=== PATIENT | female | born 1965 | race Caucasian/White ===

== ENCOUNTER → 2017-03-16 | Outpatient (CLI) | payer BC ==
--- NOTE | 2017-03-18 13:07 | MM ---
Reason for exam: screening (asymptomatic). Last mammogram was performed 2 years and 5 months ago. History: Saline implants in both breasts, 2000. Took hormonal contraceptives for 5 months beginning at age 44. Physical Findings: A clinical breast exam by your physician is recommended on an annual basis and results should be correlated with mammographic findings. MG Screening Mammo Implant/CAD Bilateral CC, MLO, and ID view(s) were taken. Prior study comparison: December 11, 2015, mammogram, performed at [facility]. October 15, 2014, bilateral MG screening mammo w CAD. March 03, 2013, CAD bilateral diagnostic mammogram. There are scattered fibroglandular densities. Bilateral breast prothesis. No significant changes when compared with prior studies. ASSESSMENT: Benign, BI-RAD 2 RECOMMENDATION: Routine screening mammogram of both breasts in 1 year.
== END | disposition home or self-care (01) ==
LOC: RADMAMWWP 14:12
PROVIDERS: ATTEND Obstetrics & Gynecology
DX: Z12.31 Encounter for screening mammogram for malignant neoplasm of breast (principal)

== ENCOUNTER → 2019-01-19 | Outpatient (CLI) | payer BC ==
--- NOTE | 2019-01-20 10:45 | MM ---
Reason for exam: screening (asymptomatic). Last mammogram was performed 1 year and 10 months ago. History: Saline implants in both breasts, 2000. Took hormonal contraceptives for 5 months beginning at age 44. Physical Findings: A clinical breast exam by your physician is recommended on an annual basis and results should be correlated with mammographic findings. MG 3D Screen Mammo Imp/Cad Bilateral CC, MLO, and ID view(s) were taken. Prior study comparison: March 16, 2017, bilateral MG screening mammo implant/CAD. December 11, 2015, mammogram, performed at [facility]. The breast tissue is heterogeneously dense. This may lower the sensitivity of mammography. Finding: There is a 6 mm equal density (isodense), obscured oval mass in the upper outer quadrant of the left breast. ASSESSMENT: Incomplete: need additional imaging evaluation, BI-RAD 0 RECOMMENDATION: Special view mammogram of the left breast. If lesion persists on supplemental views, image directed ultrasound is recommended. [facility] will attempt to contact patient to return for supplemental views and ultrasound if indicated.
== END | disposition home or self-care (01) ==
LOC: RADMAMWWP 11:00
PROVIDERS: ATTEND Obstetrics & Gynecology Obstetrics
DX: Z12.31 Encounter for screening mammogram for malignant neoplasm of breast (principal); Z98.82 Breast implant status
CPT/HCPCS: 77063; 77067

== ENCOUNTER → 2019-01-31 | Outpatient (CLI) | payer BC ==
--- NOTE | 2019-01-31 14:55 | MM ---
Reason for exam: additional evaluation requested from abnormal screening. Last mammogram was performed less than 1 month ago. History: Saline implants in both breasts, 2000. Took hormonal contraceptives for 5 months beginning at age 44. Physical Findings: Nurse did not find any significant physical abnormalities on exam. MG 3D Work Up W/Cad LT Spot compression CC, spot compression MLO, LM, and ID view(s) were taken of the left breast. Prior study comparison: January 19, 2019, bilateral MG 3d screen mammo imp/cad. March 16, 2017, bilateral MG screening mammo implant/CAD. Nodular density 3 o'clock, 3.6cm from nipple. These results were verbally communicated with the patient and result sheet given to the patient on 01/31/19. ASSESSMENT: Incomplete: need additional imaging evaluation, BI-RAD 0 RECOMMENDATION: Ultrasound of the left breast.
--- NOTE | 2019-01-31 14:56 | USB ---
Reason for exam: additional evaluation requested from abnormal screening. History: Saline implants in both breasts, 2000. Took hormonal contraceptives for 5 months beginning at age 44. US Breast Workup Limited LT Left limited breast ultrasound including focal area of concern, retroareolar and axilla demonstrates no cystic or solid lesion seen greater than 0.50cm. These results were verbally communicated with the patient and result sheet given to the patient on 01/31/19. ASSESSMENT: Probably benign, BI-RAD 3 RECOMMENDATION: Follow-up diagnostic mammogram of the left breast in 6 months.
== END ==
LOC: RADMAMWWP 13:26
PROVIDERS: ATTEND Obstetrics & Gynecology Obstetrics
DX: R92.8 Other abnormal and inconclusive findings on diagnostic imaging of breast (principal)
CPT/HCPCS: 77061; 77065

== ENCOUNTER 2020-04-26 11:00 | Emergency (ER) | payer BC ==
[2020-04-26] MEDS ORDERED: METOCLOPRAMIDE 5 MG/ML 2 ML VIAL IVP STA (11:54)
[2020-04-26] MEDS ORDERED: diphenhydrAMINE 50 MG/ML 1 ML VIAL IVP STA (11:54)
[2020-04-26] MEDS ORDERED: SODIUM CHLORIDE 0.9% 1,000 ML IV STA (11:54)
--- NOTE | 2020-04-26 12:01 | ED ---
General Adult HPI - General Chief complaint: Headache Stated complaint: numbness mouth and hands Time Seen by Provider: 04/26/20 11:25 Source: patient, RN notes reviewed Mode of arrival: ambulatory Limitations: no limitations - History of Present Illness Initial comments: 54-year-old female with a past medical history of migraines presents to the emergency department for chief complaint of numbness in the bilateral fingertips. Patient has had migraines for 30 years. Patient takes sumatriptan and naproxen for this. Patient states that her migraines usually began as numbness and tingling in her fingertips and mouth, followed by blurry vision, then progressing to a headache. Patient states that over the past week she has had a couple different migraines but this time is different because the numbness hasn't gone away. Patient states she called her doctor and they cannot see her today so recommend that she go to the emergency room. Patient states that she always has this numbness but it normally goes away. Patient denies blurry vision at this time. Patient does not have a headache at this time. Patient has never seen a neurologist for this.Patient has no other complaints at this time including shortness of breath, chest pain, abdominal pain, nausea or vomiting, headache, or visual changes. - Related Data Allergies Allergy/AdvReac Type Severity Reaction Status Date / Time codeine AdvReac Nausea & Verified 04/26/20 11:17 Vomiting Review of Systems ROS Statement: Those systems with pertinent positive or pertinent negative responses have been documented in the HPI. ROS Other: All systems not noted in ROS Statement are negative. Past Medical History Additional Past Medical History / Comment(s): migraine History of Any Multi-Drug Resistant Organisms: None Reported Additional Past Surgical History / Comment(s): breast augmentation Past Psychological History: No Psychological Hx Reported Smoking Status: Never smoker Past Alcohol Use History: None Reported Past Drug Use History: None Reported General Exam Limitations: no limitations General appearance: alert, in no apparent distress Head exam: Present: atraumatic, normocephalic, normal inspection Eye exam: Present: normal appearance, PERRL, EOMI. Absent: scleral icterus, conjunctival injection, periorbital swelling ENT exam: Present: normal exam, mucous membranes moist Neck exam: Present: normal inspection, full ROM. Absent: tenderness, meningismus, lymphadenopathy Respiratory exam: Present: normal lung sounds bilaterally. Absent: respiratory distress, wheezes, rales, rhonchi, stridor Cardiovascular Exam: Present: regular rate, normal rhythm, normal heart sounds. Absent: systolic murmur, diastolic murmur, rubs, gallop, clicks GI/Abdominal exam: Present: soft, normal bowel sounds. Absent: distended, ten derness, guarding, rebound, rigid Neurological exam: Present: alert, oriented X3, CN II-XII intact, normal gait, other (GCS 15) Expanded Patient oriented to: Present: person, place, time Speech: Present: fluid speech Cranial nerves: EOM's Intact: Normal, Tongue Deviation: Normal, Nystagmus: Nor mal, Facial Sensation: Normal Cerebellar function: Finger to Nose: Normal, Heel to [place]: Normal, Romberg: Normal Upper motor neuron: Pronator Drift: Normal Sensory exam: Upper Extremity Light Touch: Normal, Upper Extremity Pin Prick: Normal, Lower Extremity Light Touch: Normal, Lower Extremity Pin Prick: Normal Motor strength exam: RUE: 5, LUE: 5, RLE: 5, LLE: 5 Eye Response: (4) open spontaneously Motor Response: (6) obeys commands Verbal Response: (5) oriented Katelyn Total: 15 Psychiatric exam: Present: normal affect, normal mood Course Vital Signs 04/26/20 11:10 Temperature 98.1 F Pulse Rate 64 Respiratory 18 Rate O2 Sat by Pulse 99 Oximetry Medical Decision Making - Medical Decision Making HPI physical exam is documented. Neurologic exam is unremarkable. No focal neurologic deficits. Patient is well-appearing. Patient was essentially sent from primary care for a CAT scan of the brain. I did obtain this which showed no acute intracranial hemorrhage or midline shift. Patient has no headache at this time. Patient was then given Toradol. Patient actually did have improvement in the numbness in the distal fingertips bilaterally. At this time patient will follow-up with neurology. She'll return for any worsening symptoms. Patient is agreeable to this plan. Disposition Clinical Impression: Paresthesia Disposition: HOME SELF-CARE Condition: Good Instructions (If sedation given, give patient instructions): Paresthesia (ED) Additional Instructions: Please follow-up with primary care neurology. If you have worsening symptoms return here to the emergency room. Is patient prescribed a controlled substance at d/c from ED?: No Referrals: Kaye Ortiz III, MD [Primary Care Provider] - 1-2 days John Saab MD [Medical Doctor] - 1-2 days Time of Disposition: 13:40
--- NOTE | 2020-04-26 12:50 | CT ---
EXAMINATION TYPE: CT brain wo con DATE OF EXAM: 04/26/2020 HISTORY: FISHER, numbness hands and mouth CT DLP: 1078.4 mGycm. Automated Exposure Control for Dose Reduction was Utilized. TECHNIQUE: CT scan of the head is performed without contrast. COMPARISON: None. FINDINGS: There is no acute intracranial hemorrhage or midline shift identified. Ventricles and sul ci within normal limits in size for patient's age. Padilla-white matter differentiation fairly well main tained. The calvarium is intact. . Soft tissue density in right greater than left external auditory canals likely reflects cerumen. The globes are intact and the visualized sinuses are clear. IMPRESSION: No acute intracranial hemorrhage or midline shift.
[2020-04-26] MEDS ORDERED: KETOROLAC 30 MG/ML 1 ML VIAL IVP STA (12:59)
[2020-04-26 15:52] VITALS: BP 120/56; PULSE 60; RESP 20; TEMP 98
== END 2020-04-26 15:50 | disposition home or self-care (01) ==
LOC: EC 11:00
DX: R20.2 Paresthesia of skin (principal); R20.0 Anesthesia of skin; Z88.5 Allergy status to narcotic agent
CPT/HCPCS: 70450; 99284; 96374; 96375 ×2; 96361 ×3; J1200; J2765; J1885

== ENCOUNTER → 2020-07-02 | Day surgery (SDC) | payer BC ==
[2020-07-01 08:30] VITALS: BMI 22.4
[~2020-07-02] MED LIST: LACTATED RINGERS 1,000 ML IV SCH; LIDOCAINE 1% (10MG/ML) FOR IV START INTRADERMA PRN; ONDANSETRON 4 MG/2 ML VIAL ONE; PROPOFOL 10 MG/ML 20 ML VIAL IV ONE
[2020-07-02 09:17] VITALS: TEMP 97
--- NOTE | 2020-07-02 09:35 | P.GSHP ---
History of Present Illness H&P Date: 07/02/20 Chief Complaint: Colon cancer screening Patient here today for colonoscopy. She has not had 1 previously. No bowel complaints. No family history of colon cancer. Past Medical History Additional Past Medical History / Comment(s): migraine History of Any Multi-Drug Resistant Organisms: None Reported Past Surgical History: Breast Surgery Additional Past Surgical History / Comment(s): breast augmentation Past Anesthesia/Blood Transfusion Reactions: No Reported Reaction Smoking Status: Never smoker - Past Family History Mother Family Medical History: No Reported History Medications and Allergies Home Medications Medication Instructions Recorded Confirmed Type Naproxen [Naprosyn] 500 mg PO Q12HR PRN 07/01/20 07/02/20 History SUMAtriptan succinate [Sumatriptan 100 mg PO DAILY PRN 07/01/20 07/02/20 History Succinate] Allergies Allergy/AdvReac Type Severity Reaction Status Date / Time codeine AdvReac Nausea & Verified 07/02/20 09:07 Vomiting Surgical - Exam Vital Signs Temp Pulse Resp BP Pulse Ox 97 F L 107 H 16 139/65 99 07/02/20 09:16 07/02/20 09:16 07/02/20 09:16 07/02/20 09:16 07/02/20 09:16 Physical exam: General: Well-developed, well-nourished HEENT: Normocephalic, sclerae nonicteric Abdomen: Nontender, nondistended Extremities: No edema Neuro: Alert and oriented Assessment and Plan (1) Colon cancer screening Narrative/Plan: Will proceed with colonoscopy Current Visit: Yes Status: Acute Code(s): Z12.11 - ENCOUNTER FOR SCREENING FOR MALIGNANT NEOPLASM OF COLON SNOMED Code(s): 609672107
--- NOTE | 2020-07-02 09:49 | P.PCN ---
Date of Procedure: 07/02/20 Procedure(s) Performed: PREOPERATIVE DIAGNOSIS: Colon cancer screening POSTOPERATIVE DIAGNOSIS: Normal exam PROCEDURE: Colonoscopy ANESTHESIA: MAC SURGEON: Robert Patton M.D. SPECIMENS: None ENDOSCOPIC PROCEDURE: The patient was placed on the endoscopy table in the left decubitus position. The Olympus colonoscope was inserted into the anus and passed under direct visualization to the base of the cecum. The appendiceal orifice was visualized. From that point the scope was slowly withdrawn inspecti ng all surfaces carefully. There were no neoplastic inflammatory or polypoid lesions throughout the cecum, ascending, transverse, descending, sigmoid and rectum. There was no visible diverticulosis noted. Digital rectal examination was normal. The patient was taken to the recovery room in stable condition per anesthesia guidelines. RECOMMENDATIONS: Resume diet. Follow colonoscopy advised 10 years.
[2020-07-02 09:55] VITALS: PULSE 70; RESP 17
[2020-07-02 10:01] VITALS: BP 106/56
== END ==
LOC: ORWHC2ENDO 08:53
PROVIDERS: ATTEND Surgery
DX: Z12.11 Encounter for screening for malignant neoplasm of colon (principal); G43.909 Migraine, unspecified, not intractable, without status migrainosus; Z88.5 Allergy status to narcotic agent; Z98.890 Other specified postprocedural states
CPT/HCPCS: J2405; J2704; G0121

== ENCOUNTER → 2020-08-22 | Outpatient (CLI) | payer BC ==
--- NOTE | 2020-08-22 22:26 | MR ---
EXAMINATION TYPE: MR angio head wo con DATE OF EXAM: 08/22/2020 COMPARISON: None HISTORY: Headaches, numbness, visual disturbance, family hx AVM CONTRAST: None TECHNIQUE: Multiplanar multiecho imaging on a 3.0 Shahrzad magnet is performed through the skull valley of Max lis. 3-D [id number] imaging is performed. Source images are reviewed on the computer in the axi al plane. Reconstructed images rotating on the computer are reviewed. FINDINGS: The internal carotid arteries bifurcate normally into A1 and M1 segments. The A2 segments are normal. Middle cerebral artery branches are normal. Anterior communicating artery is absent. The right posterior communicating artery is absent. The left posterior communicating artery is and. Vertebrobasilar arteries within the [id number] are normal. Posterior cerebral vasculature is norm al. No suspicious aneurysm or aneurysmal dilatation is evident. No obstructions are identified. No significant flow-limiting stenosis is evident. IMPRESSIONS: 1. NORMAL MRA [facility].
--- NOTE | 2020-08-22 22:53 | MR ---
EXAMINATION TYPE: MR brain wo/w con DATE OF EXAM: 08/22/2020 COMPARISON: CT brain 04/26/2020 HISTORY: Headaches, numbness, visual disturbance, family hx AVM CONTRAST: Performed utilizing 6 mL intravenous Gadavist gadolinium contrast. TECHNIQUE: Multiplanar, multiecho imaging on a 3.0 Shahzrad magnet is performed through the brain. Stud y is performed within 24 hours of arrival to the hospital. The craniovertebral junction is normal. The pituitary is normal. Diffusion-weighted imaging is performed. No abnormal hyperintensity is present to suggest an acute i ntracranial infarct or acute ischemic change. There are several subcortical and deep white matter punctate hyperintensities within the bilateral ce rebral hemispheres. Findings are nonspecific. Differential diagnosis could include microvascular isch emic change. This is more frequent than typically identified with migraine headaches. Other etiologie s could include Lyme disease, vasculitis, multiple sclerosis. Ventricles and sulci are appropriate for the patient age. No suspicious enhancement is evident. IMPRESSIONS: 1. Multiple punctate hyperintensities predominantly within subcortical white matter are nonspecific. Consider microvascular ischemic change. This is greater than expected for this age. Differential diag nosis is discussed above.
== END | disposition home or self-care (01) ==
LOC: RADMRIMAIN 16:29
PROVIDERS: ATTEND Psychiatry & Neurology Neurology
DX: R90.89 Other abnormal findings on diagnostic imaging of central nervous system (principal); R29.818 Other symptoms and signs involving the nervous system; Z82.79 Family history of other congenital malformations, deformations and chromosomal abnormalities; G43.909 Migraine, unspecified, not intractable, without status migrainosus
CPT/HCPCS: 70544; 70553; A9585

== ENCOUNTER → 2020-11-06 | Outpatient (CLI) | payer BC ==
--- NOTE | 2020-11-11 11:13 | P.HOLTER ---
Baseline EKG showed sinus rhythm with normal OK and QRS duration. Patient remained in sinus mechanism throat regarding with episodes of sinus tachycardia. Occasional APCs were noted. No ventricular arrhythmias are noted. Patient complained of episodes of fluttering, chest pain fast heartbeat. The complaints of chest pains were associated with mild sinus tachycardia. #1. Sinus rhythm. #2. Episodes of sinus tachycardia #3. No ventricular or supraventricular arrhythmias. #4. Patient's symptoms of chest pain and fluttering associated with sinus rhythm and mild sinus tachycardia
--- NOTE | 2020-11-11 14:17 | HM ---
Baseline EKG showed sinus rhythm with normal VT and QRS duration. Patient remained in sinus mechanism throat regarding with episodes of sinus tachycardia. Occasional APCs were noted. No ventricular arrhythmias are noted. Patient complained of episodes of fluttering, chest pain fast heartbeat. The complaints of chest pains were associated with mild sinus tachycardia. #1. Sinus rhythm. #2. Episodes of sinus tachycardia #3. No ventricular or supraventricular arrhythmias. #4. Patient's symptoms of chest pain and fluttering associated with sinus rhythm and mild sinus tachycardia MTDD
== END | disposition home or self-care (01) ==
LOC: RADECHMAIN 12:31
PROVIDERS: ATTEND Family Medicine
DX: R00.0 Tachycardia, unspecified (principal); I49.8 Other specified cardiac arrhythmias; Z88.5 Allergy status to narcotic agent
CPT/HCPCS: 93225; 93226